=== PATIENT | female | born 1995 | race Two or more races ===

== ENCOUNTER → 2019-11-03 | Emergency (ER) | payer SELFPAY ==
[~2019-11-03] VITALS: Ht 165.1 cm; Wt 68.0 kg
[~2019-11-03] MED LIST: ACETAMINOPHEN 325 MG TAB PO ONE
[2019-11-03 21:16] VITALS: BP 126/85
== END | disposition home or self-care (01) ==
LOC: EDUNIT# 18:56 → ER 19:17 → EDBD 19:17
DX: B34.9 Viral infection, unspecified (principal); J45.909 Unspecified asthma, uncomplicated; Z20.828 Contact with and (suspected) exposure to other viral communicable diseases
CPT/HCPCS: 71045; 99284; C9803; U0003

== ENCOUNTER → 2021-08-08 | Emergency (ER) | payer MEDICAID ==
[~2021-08-08] VITALS: Ht 165.1 cm; Wt 70.3 kg
[~2021-08-08] MED LIST changes: -ACETAMINOPHEN 325 MG TAB PO ONE; +ONDA-144 PO; +ONDANSETRON ODT 4 MG TAB PO ONE; +POTASSIUM CHL 20 Meq TABLET PO ONE
[2021-08-08 13:57] VITALS: BP 132/83
[2021-08-08 15:04] LABS: Urine Bacteria FEW /hpf (None Seen); Urine Blood Negative /uL (Negative); Urine Mucus FEW (None Seen); Urine WBC 1 /hpf (0 - 5)
[2021-08-08 15:27] LABS: Alcohol, Urine < 3.0 mg/dL (0-10); Amphetamine Screen, Urine NEGATIVE (NEGATIVE); Barbiturate Scree,Urine NEGATIVE (NEGATIVE); Benzodiazephine Screen, Urine NEGATIVE (NEGATIVE); Cocaine Screen, Urine NEGATIVE (NEGATIVE); Opiate Scree,Urine NEGATIVE (NEGATIVE); Phencyclidine Screen, Urine NEGATIVE (NEGATIVE)
[2021-08-08 15:34] LABS: Cannabinoid Screen, Urine POSITIVE (NEGATIVE)
[2021-08-08 15:40] LABS: Basophils # (auto) 0 10 ^3/uL (0-0.2); Basophils % (auto) 0.2 % (0.0-2.0); Eosinophils # (auto) 0 10 ^3/uL (0-0.8); Eosinophils % (auto) 0.5 % (0.0-7.0); Hematocrit 37.9 % (36.0-46.0); Hemoglobin 12.6 g/dL (12.2-16.2); Lymphocytes # (auto) 2.1 10 ^3/uL (0.4-5.4); Mean Corpuscular Hemoglobin 27.7 pg (28.0-32.0); Mean Corpuscular Hgb Conc. 33.2 g/dL (32.0-36.0); Mean Corpuscular Volume 83.5 fL (80.0-100.0); Monocytes # (auto) 0.4 10 ^3/uL (0-1.3); Monocytes % (auto) 5.7 % (0.0-12.0); Neutrophils # (auto) 4.3 10 ^3/uL (1.6-8.6); Neutrophils % (auto) 62.6 % (37.0-80.0); Nucleated Red Blood Cells % 0.3 %; Red Blood Cells 4.55 10^6/uL (4.0-5.20); Red Cell Distribution Width 14.5 % (11.8-14.3); White Blood Cell 6.9 10^3/uL (4.4-10.8)
[2021-08-08 15:57] LABS: Albumin 3.9 g/dL (3.4-5.0); Calcium 8.9 mg/dL (8.5-10.1); Potassium 3.3 mmol/L (3.5-5.1)
[2021-08-08 16:00] LABS: BUN/Creatinine Ratio 13.8; Bilirubin, Total 0.4 mg/dL (0.2-1.0); Total Protein 8.2 g/dL (6.4-8.2)
[2021-08-08 16:03] LABS: Magnesium 2.5 mg/dL (1.6-2.6)
== END | disposition home or self-care (01) ==
LOC: ER 13:39
DX: R11.0 Nausea (principal); J45.909 Unspecified asthma, uncomplicated; Z90.89 Acquired absence of other organs; Z79.899 Other long term (current) drug therapy
CPT/HCPCS: 36415; 80053; 80307; 81001; 83605; 83690; 83735; 84702; 85025; 93005

== ENCOUNTER 2022-09-20 13:49 | Emergency (ER) | payer MEDICAID ==
[~2022-09-20] VITALS: Ht 165.1 cm; Wt 70.4 kg
[~2022-09-20 13:49] MED LIST changes: -ONDANSETRON ODT 4 MG TAB PO ONE; -POTASSIUM CHL 20 Meq TABLET PO ONE
[2022-09-20 14:42] LABS: Basophils # (auto) 0 10 ^3/uL (0-0.2); Basophils % (auto) 0.2 % (0.0-2.0); Eosinophils # (auto) 0.1 10 ^3/uL (0-0.8); Eosinophils % (auto) 0.9 % (0.0-7.0); Hematocrit 35.4 % (36.0-46.0); Hemoglobin 11.6 g/dL (12.2-16.2); Lymphocytes # (auto) 1.5 10 ^3/uL (0.4-5.4); Lymphocytes % (auto) 18.8 % (10.0-50.0); Mean Corpuscular Hemoglobin 27.8 pg (28.0-32.0); Mean Corpuscular Hgb Conc. 32.7 g/dL (32.0-36.0); Monocytes # (auto) 0.4 10 ^3/uL (0-1.3); Monocytes % (auto) 5.4 % (0.0-12.0); Neutrophils # (auto) 6.1 10 ^3/uL (1.6-8.6); Neutrophils % (auto) 74.7 % (37.0-80.0); Red Blood Cells 4.16 10^6/uL (4.0-5.20); Red Cell Distribution Width 14.3 % (11.8-14.3); White Blood Cell 8.1 10^3/uL (4.4-10.8)
[2022-09-20 14:43] LABS: Calcium 8.1 mg/dL (8.5-10.1); Potassium 3.6 mmol/L (3.5-5.1)
[2022-09-20 14:47] LABS: BUN/Creatinine Ratio 16.4 (10.0-20.0); Bilirubin, Total 0.2 mg/dL (0.2-1.0); Total Protein 6.9 g/dL (6.4-8.2)
[2022-09-20 15:31] LABS: Urine Bacteria FEW /hpf (None Seen); Urine Blood Negative /uL (Negative); Urine Specific Gravity 1.027 (1.001-1.035); Urine WBC 1 /hpf (0 - 5)
[2022-09-20 17:27] VITALS: BP 128/78; PULSE 89; RESP 18; O2SAT 100
== END 2022-09-20 17:31 | disposition home or self-care (01) ==
LOC: ER 13:49
DX: Z34.82 Encounter for supervision of other normal pregnancy, second trimester (principal); J45.909 Unspecified asthma, uncomplicated; F15.90 Other stimulant use, unspecified, uncomplicated; Z3A.15 15 weeks gestation of pregnancy; Z90.89 Acquired absence of other organs; Z79.899 Other long term (current) drug therapy
CPT/HCPCS: 36415; 76805; 80053; 81001; 84702; 85025